=== PATIENT | female | born 1975 | race Caucasian/White ===

== ENCOUNTER → 2016-10-15 | Outpatient (CLI) | payer OTHER ==
--- NOTE | ~2016-10-15 | NM8 ---
[facility] A Service [facility] RADIOLOGY TEXT RESULTS PATIENT: MARIANA DOLAN LOCATION: [facility] : 71 UNIT #: [id number] AGE: [address]: Augusta Benavidez MD SEX: F ORDER DR: [id number] [facility]. [place], [place] [address] [id number] O MR#: [id number] Acc #: [id number] NAME: MARIANA DOLAN : 1975 SEX: F STUDY DATE/TIME: 10/15/2016 12:49 UNIT: [facility] ROOM: STUDY DESCRIPTION: [place] Bone or Joint Whole Body Attending Physician: Augusta Benavidez M.D. Referring Physician: Augusta Benavidez M.D. Ordering Physician: Augusta Benavidez M.D. Primary Care Physician: Ren Carr M.D. MEDICAL IMAGING REPORT This report is preliminary unless electronic signature is present EXAM Whole-body bone scan 10/15/2016 HISTORY 41-year-old female with sclerotic bone lesion noted in the right posterior 7th rib on recent CT chest 09/16/[address] chest from [facility] Imaging 09/16/2016 TECHNIQUE Whole-body and selected spot images were performed of the axial and appendicular skeleton following the intravenous administration of 24 mCi technetium 99m MDP. FINDINGS Examination demonstrates normal symmetric uptake of the radiopharmaceutical throughout the axial and appendicular skeleton. In particular no abnormal uptake is identified in the right posterior ribs to suggest a bone lesion or to suggest an aggressive bone lesion or metastatic disease. Only left-sided renal activity is identified and review of the patient's outside chest CT reveals the patient has a solitary left kidney. Normal bladder activity noted. IMPRESSION 1. No bone scan findings to suggest osseous metastatic disease or any aggressive bone lesions within the visualized skeleton. The lesion noted on the patient's outside chest CT demonstrates no abnormal uptake on bone scan. 2. Solitary left renal activity and this patient is confirm to have a solitary left kidney per outside CT scan. Dictated by... [facility] A Service of [facility] RADIOLOGY TEXT RESULTS PATIENT: MAR[facility] DOLAN [id number] : [birth year] UNIT #: [id number] AGE: [address]: Augusta Benavidez MD SEX: F ORDER DR: Bandar Aggarwal M.D. THIS IS AN ELECTRONICALLY VERIFIED REPORT Bandar Aggarwal M.D. at 10/17/2016 11:39 AM Evan TD: 10/15/2016 18:13 JOB #: [id number] MEDICAL IMAGING REPORT COPY
== END | disposition home or self-care (01) ==
LOC: CNUC 07:52
DX: R91.8 Other nonspecific abnormal finding of lung field (principal); Q60.0 Renal agenesis, unilateral
CPT/HCPCS: 78306; A9503